=== PATIENT | male | born 2000 | race Caucasian/White ===

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

== ENCOUNTER 2024-06-15 23:52 | Emergency (ER) | payer OTHER, SELFPAY ==
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
[2024-06-15 23:58] VITALS: BP 152/72; PULSE 148; RESP 20; TEMP 36.6; O2SAT 98; BMI 22.9
--- NOTE | 2024-06-15 23:58 | EKG_ITS ---
[facility] [address] [place] [id number] Test Date: 2024-06-16 Pat Name: Jone Koch Department: [facility] Room: Gender: Male Kitchen Clerk: LATRELL : 2000 Requested By: Order Number: [id number] Reading MD: Hill Jackson Measurements Intervals [place] Rate: 98 P: 84 LA: 130 QRS: 84 QRSD: 86 T: 29 QT: 358 QTc: 457 Interpretive Statements Normal sinus rhythm Electronically Signed On 06-16-2024 18:19:55 PST by Hill Jackson
[2024-06-16] MEDS: OLANZapine 2.5 MG TABLET 5 MG PO (00:07)
[2024-06-16] MEDS: LORazepam 2 MG/ML INJ 1 MG IV (00:53)
[2024-06-16 01:09] LABS: Add Manual Diff / Slide Review NO; Basophils Absolute Auto 300 /uL (0-100); Basophils Percent Auto 3.2 % (0-2); Eosinophils Absolute Auto 200 /uL (0-450); Eosinophils Percent Auto 1.6 % (2-4); Hematocrit 44.8 % (41-53); Hemoglobin 14.8 g/dL (13.5-17.5); Lymphocytes Absolute Auto 1200 /uL (1100-4500); Lymphocytes Percent Auto 11.3 % (25-40); Mean Corpuscular HGB Conc 32.9 % (30-36); Mean Corpuscular Hemoglobin 29.7 PG (26-34); Mean Corpuscular Volume 90.1 fL (80-100); Monocytes Absolute Auto 600 /uL (0-900); Monocytes Percent Auto 5.8 % (3-14); Neutrophils Absolute Auto 8400 /uL (1500-7000); Neutrophils Percent Auto 78.1 % (50-75); Platelet Count 286 X10^3/uL (150-400); Red Blood Cell Count 4.98 X10^6/uL (4.5-5.9); Red Cell Distribution Width 13.5 % (11.6-14.8); White Blood Cell Count 10.8 X10^3/uL (4.5-11.0)
[2024-06-16 01:22] LABS: Alanine Aminotransferase 316 IU/L (<50); Albumin Globulin Ratio 1.5 (1.0-2.8); Alkaline Phosphatase 150 U/L (38-126); Aspartate Aminotransferase 92 IU/L (17-59); BUN Creatinine Ratio 12.7 (6-22); Bilirubin Total 0.4 mg/dL (0.2-1.3); Blood Urea Nitrogen 14 mg/dL (9-20); Calcium 9.7 mg/dL (8.4-10.2); Carbon Dioxide 24 mmol/L (22-32); Chloride 103 mmol/L (98-107); Estimated Glomerular Filt Rate > 60 mL/min (>60); Ethanol (ETOH) < 10 mg/dL; Globulin 3.3 g/dL (1.7-4.1); Glucose 170 mg/dL (70-100); HEMOLYSIS < 15 (0-50); Potassium 3.5 mmol/L (3.4-5.1); Sodium 139 mmol/L (137-145); Total Protein 8.3 g/dL (6.3-8.2)
--- NOTE | 2024-06-16 01:23 | PC.NURSE ---
Pt now calming after meds and cooperative with cares. No episodes of agitation since initial one soon after arrival. Pt changed into hospital attire. Pt belongings, including clothing, wallet, keys, and phone, labeled and locked in cabinet. Pt's friend, Gonzalo Riddle ([phone]) presented to ER lobby and was given update with pt's consent.
[2024-06-16 01:37] LABS: Appearance Urine UA CLEAR; Bilirubin Urine UA NEGATIVE (NEGATIVE); Color Urine UA YELLOW; Glucose Urine UA NEGATIVE (Negative); Ketones Urine UA TRACE (NEGATIVE); Leukocyte Esterase Urine UA NEGATIVE (NEGATIVE); Nitrite Urine UA NEGATIVE (Negative); Occult Blood Urine UA NEGATIVE (Negative); Protein Urine UA TRACE (Negative); Specific Gravity Urine UA >=1.030 (1.000-1.035); Urobilinogen Urine UA 0.2 E.U./dL (0.2)
[2024-06-16 01:41] LABS: Ur Creatinine Normal (Normal); Ur Specific Gravity Normal (Normal); Urine Amphetamines Negative (Negative); Urine Barbiturates Negative (Negative); Urine Benzodiazepines Negative (Negative); Urine Cocaine Negative (Negative); Urine MDMA Negative (Negative); Urine Methamphetamines Negative (Negative); Urine Opiates Negative (Negative); Urine Phencyclidine Negative (Negative); Urine THC Positive (Negative); Urine pH Normal (Normal)
[2024-06-16 01:42] LABS: Urine Methadone Negative (Negative); Urine Oxycodone Negative (Negative); Urine Tricyclic Antidepressant Negative (Negative)
[2024-06-16 01:56] LABS: Bacteria Urine None Seen; Calcium Oxalate Crystals Urine Occasional; Culture Indicated Urine Cult Not Indicated; RBC Urine None Seen (0-5/HPF); Squamous Epithelial Cell Urine 0-1 /HPF (0-5/HPF); Urine Volume 10mL (spun); WBC Urine None Seen (0-5/HPF)
[2024-06-16 02:12] VITALS: BP 152/72; PULSE 80; RESP 15; O2SAT 99
[2024-06-16 02:36] LABS: Acetaminophen < 10 ug/mL (10-30); Salicylate < 1.0 mg/dL (<20)
[2024-06-16 02:49] LABS: TSH w/ Reflex to FT4 2.24 uIU/mL (0.47-4.68)
[2024-06-16 04:54] VITALS: BP 98/52; PULSE 68; RESP 20; O2SAT 97
--- NOTE | 2024-06-16 06:40 | PC.NURSE ---
Pt has been sleeping restfully all night. Moving independently in bed.
[2024-06-16 07:54] VITALS: BP 98/50; PULSE 61; RESP 12; O2SAT 95
--- NOTE | 2024-06-16 12:53 | CM.SWNOTE ---
Addendum entered by NICKOLAS Anne 06/16/24 13:01: ED WAREHOUSE HANDLER deployed PHQ-9 and MELLY-7 screening tools. Patient scored 18 (PHQ-9) and 14 (MELLY-7), indicating moderately severe depression and moderate anxiety, respectively. Vannessa Arcos, [facility] Original Note: ED WAREHOUSE HANDLER Assessment Note: WAREHOUSE HANDLER - Propagation Worker Assessment WAREHOUSE HANDLER/Propagation Worker Assessment Time Spent with Patient Start date 06/16/24 Visit Start Time 11:55 End date 06/16/24 Visit End Time 12:25 Total time Care Management spent on 30 minutes patient visit-in minutes Mental Health Screening Include Onset, Duration, Intensity Presenting Problem Patient presented to the ED via [facility] under JOVON status due to agitation. It is reported patient had smoked marijuana and had negative reactions that included agitation, paranoia, delusions and increased suicidal ideation. This morning, patient is more alert and oriented to the presented. Patient still endorses some SI and need for stabilization. Precipitating Event(s) Patient reports having increased life stressors due to recent job loss and transition. Patient moved from [place] to [place] at the end of 2023 with hopes of working more and saving money to return to [place]. Patient lost one of two jobs and has not been able to save resources as planned. Patient Strengths Patient has a strong network of friends and family in the [facility] area. Patient is resourceful and is employed. Current Behavioral Health Provider(s) None established. Include Facility, Provider, Ph. # Psych. Hx Mental Health and Chemical Patient has no previous MH Dependency diagnoses. Patient utilizes THC but no other substances. UDS is only positive for THC and negative for all other substances. Family Hx of Behavioral Abuse Patient reports his father experienced a TBI and has had untreated MH symptoms. Psychiatric Hospitalizations (date(s)/ None reported. location) Psychosocial information & Support Patient is a 23yo male, Systems resident of [place] with his friend. Patient's parents live in [place] but he is connected with them. Patient also has friends in [place] and [place]. School/Work Patient works at the [employer] in [place], part- time. Legal Concerns Legal Matters - Outstanding Issues None reported. Mental Status Orientation (Person/Place/Time) AOx3 Stated Mood Tired Affect (Congruent with Mood?) Mixed, congruent with mood. Thought Content - Specify/Describe Patient explains experiencing Obsessions, Delusions, Hallucinations a time loop where he experiences experiences or words said to him repeatedly. Patient explains this was exacerbated when he consumed THC last evening but sometimes experiences this when not consuming THC. Thought Processes (Vmntkcu-Pucnsqdb-Ivxg Logical, goal directed Zvtdjemu-Cahfgsqe-Wnnaaydcrb- Slahfwocflvfrj-Vobzuji-Cbnokvpzqmgu- Thought Blocking) Speech (Jlkuak-Krqm-Jnwqcbq-Rapid-Soft- Normal, soft Loud-Pressured) Motor (Xalupy-Ddtxhdtwe-Jssb-Other) Normal Insight (Ofbc-Lxst-Aqyc/Limited) Good Judgement (Zqma-Cwub-Eklq/Limited) Fair Impulse Control (Adequate-Impaired) Impaired Memory (Vjtkftxdp-Aixxfi-Xvgxfy, Recent, immediate Impaired-Intact) Concentration (Intact-Impaired) Intact Attention (Intact-Impaired) Intact Behavior (Appropriate-Inappropriate) Appropriate Additional Comment Patient is calm, cooperative and communicative during assessment. Patient is voluntary and exhibits good insight to his plan of care. Risk Assessment Suicidal Ideation (Plan) Yes Homicidal Ideation (Plan) No Comment Patient explains he has been having passive SI in the last few years but these thoughts have been increasing in the last month. Patient explained he was in [place] the other week and was walking over a bridge and stopped and pondered the idea of jumping from this bridge. Patient denies HI. Intervention Intervention Reviewed chart and discussed with ED Provider pt's medical status and discharge needs. ED WAREHOUSE HANDLER meets with patient. Patient endorses the events of the previous night and denies utilizing any other substances. Patient explains he has never had this reaction to THC before but he also received the joint from a friend who purchased it from a dispensary. Patient explains he had increased paranoia that he was turning into a zombie and that his friend should kill him before it gets worse. Patient explains he was increasingly paranoid and out of control of his body. ED WAREHOUSE HANDLER and patient discuss goals of care. Patient explains they are agreeable to receive inpatient behavioral health hospitalization at this time for medication stabilization and to address SI/depression. Patient did not identify a preference for a facility but stated would appreciate a placement in [place] due to proximity to social supports. At this time, it is the opinion of this WAREHOUSE HANDLER that patient would benefit from inpatient psychiatric hospitalization for SI. WAREHOUSE HANDLER informs ED provider, Dr. Berrios, who indicates agreement. WAREHOUSE HANDLER informs ANIBAL Eckert. Plan RA Plan Once patient is medically clear, ED staff will attempt to find inpatient placement for patient. ROGER Lindquist
--- NOTE | 2024-06-16 14:09 | CM.SWNOTE ---
Addendum entered by NICKOLAS Anne 06/16/24 16:33: 1551: Jaya from [facility] states they are requesting a COVID test and note of medical clearance before phone screening. Patient still in review. 1630: COVID test result (negative) and updated ED Summary with Medical Clearance noted sent to [facility]. Plan: Pending acceptance at [facility], awaiting phone screening with patient. ED staff to coordinate dc plans. ROGER Lindquist Original Note: ED PET TRAINING INSTRUCTOR Note: ED PET TRAINING INSTRUCTOR initiated bed search for inpatient BH treatment. PET TRAINING INSTRUCTOR calls Located within [facility], it was reported that there are beds available. PET TRAINING INSTRUCTOR sent packet for review. At 1355, It is reported that they feel patient's symptoms are not acute for inpatient treatment at their facility at this time. PET TRAINING INSTRUCTOR calls [facility], it was reported that there are beds available. PET TRAINING INSTRUCTOR completed phone screening with Intake Jaya and sent packet for review. PET TRAINING INSTRUCTOR discussed IOP with patient during assessment. Patient was agreeable with IOP but did state a stronger preference for inpatient treatment at this time. PET TRAINING INSTRUCTOR sent preliminary referral to [facility] IOP in the case that pt does not met inpatient criteria at any facility and needs outpatient follow up. Plan: Pending acceptance at inpatient facility for BH treatment. ED staff following for coordination of dc plans. ROGER Lindquist
[2024-06-16 14:45] VITALS: BP 94/51; PULSE 73; RESP 16; O2SAT 99
[2024-06-16 16:27] LABS: COVID19 -Nasal RAPID Negative (Negative)
--- NOTE | 2024-06-16 17:43 | PC.NURSE ---
At this time, upon assumption of care of the patient, he was reassessed by this EDRTo and Vannessa OLMOS to recheck the suicide risk and determine if the patient still wants inpatient treatment or qualifies for intensive outpatient treatment. Patient endorsed suicidal thoughts which are increasing in nature and that he recently stood at a bridge in [place] and thought about jumping. No current plan. Patient does not feel safe to go home and would still like inpatient treatment.
--- NOTE | 2024-06-16 18:35 | CM.SWNOTE ---
ED SHOP LABORER Discharge Plan: ED SHOP LABORER has forwarded all requested clinicals to [facility], Intake Jaya requested ED Provider dictation typo be amended due to unclear wording of whether patient is safe to discharge home. ED SHOP LABORER sent emilecarolaisai ED Provider Summary via fax. ED SHOP LABORER coordinated phone screening with patient and [facility] Intake. Pt stated after phone call that they are not accepting pt and hope for an outpatient plan. ED SHOP LABORER confirmed with Jaya at [facility] Intake that pt is denied for inpatient treatment at this time. ED SHOP LABORER discussed outpatient planning with pt, pt now luis a for safety and feels safe with robust outpatient plan and dc with friends/roommate. Pt denies active SI with plan/intent. ED SHOP LABORER called [facility] and set up [facility] referral for outpatient follow up, provided pt with [facility] phone number and educated of program. Per request of patient, ED SHOP LABORER scheduled him for soonest initial prescriber appointment at [facility] on 07/07/2024 at 3:00pm via online oil heater operator. Pt provided with [facility] contact information and appointment time. SHOP LABORER reviewed safety plan with pt, pt agreeable with follow up appointments. Plan: Pt to discharge home with friend/roommate, follow up with OT and [facility] for outpatient care. ORGER Lindquist
[2024-06-16 18:59] VITALS: BP 112/59; PULSE 77; RESP 16; O2SAT 99
--- NOTE | 2024-06-16 19:43 | PC.NURSE ---
1859 Patient no longer endorsing current suicidal ideation and reports he feels safe to go home with Intensive Outpatient treatment in place setup by NICKOLAS Hurd.
== END 2024-06-16 19:00 | disposition home or self-care (01) ==
PROVIDERS: Emergency Medicine; Emergency Provider Emergency Medicine; PCP Pediatrics
DX: R45.851 Suicidal ideations (principal); F32.A Depression, unspecified
CPT/HCPCS: 36415; 80053; 80305; 80320; 80329; 81001; 84443; 85025; 87635; 93005; 96374; 99285; 99291; 99292; G0480; J2060